=== PATIENT | female | born 1955 | race American Indian/Alaskan Native ===

== ENCOUNTER 2020-07-09 11:10 | Emergency (ER) | payer MEDICARE, OTHER ==
[2020-07-09] MEDS ORDERED: fentaNYL 100 MCG/2 ML SDV IVPUSH ONE (12:12)
--- NOTE | 2020-07-09 12:15 | EDM.PDOC ---
ED HPI GENERAL MEDICAL PROBLEM - General Chief Complaint: Lower Extremity Injury/Pain Stated Complaint: LEG/FEET PAIN WITH SWELLING Time Seen by Provider: 07/09/20 12:06 Source of Information: Reports: Patient, Family, RN Notes Reviewed History Limitations: Reports: No Limitations - History of Present Illness INITIAL COMMENTS - FREE TEXT/NARRATIVE: 65-year-old female presents emergency department today complaint of bilateral foot pain as well as a wound in her left foot she states has been there for couple of days she is quite uncomfortable with the ongoing foot pain she states she has no other health troubles recently moved to the area to spend more time with her daughter denies any fevers nausea vomiting shortness of breath or chest pain - Related Data Allergies Allergy/AdvReac Type Severity Reaction Status Date / Time No Known Allergies Allergy Verified 07/09/20 11:28 Home Meds: Home Meds Cholecalciferol (Vitamin D3) [Vitamin D] 1 tab PO DAILY 07/09/20 [History] No122/Iron/Folic Acid [ Multi Tablet] 1 tab PO DAILY 07/09/20 [History] Thiamine [Vitamin B-1] 100 mg PO DAILY 07/09/20 [History] Past Medical History HEENT History: Reports: Impaired Vision Respiratory History: Reports: COPD 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 History: Reports: Cirrhosis, 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 History: Reports: Psychiatric History: Reports: Addiction Endocrine/Metabolic History: Reports: Hypothyroidism, Obesity/BMI 30+ Hematologic History: Reports: Blood Transfusion(s), Folic Acid Dermatologic History: Reports: Psoriasis - Past Surgical History Oncologic Surgical History: Reports: Other (See Below) Other Oncologic Surgeries/Procedures: LIVER BIOPSY Social & Family History - Tobacco Use Tobacco Use Status *Q: Current Every Day Tobacco User Years of Tobacco use: 30 Packs/Tins Daily: 0.5 - Alcohol Use Days Per Week of Alcohol Use: 4 Number of Drinks Per Day: 7 Total Drinks Per Week: 28 - Recreational Drug Use Recreational Drug Use: No Review of Systems - Review of Systems Review Of Systems: See Below Constitutional: Reports: No Symptoms Respiratory: Reports: No Symptoms Cardiovascular: Reports: No Symptoms GI/Abdominal: Reports: No Symptoms Musculoskeletal: Reports: Foot Pain Skin: Reports: Wound ED EXAM, GENERAL - Physical Exam Exam: See Below Free Text/Narrative:: Examination of the feet pedal pulses +2 I do not appreciate any erythema there is no edema she does have an open wound on the bottom of her left foot that is approximately size of a $0.25 piece it is just proximal to the MCP joint digits 3 4 Exam Limited By: No Limitations General Appearance: Alert, Moderate Distress Respiratory/Chest: No Respiratory Distress, Lungs Clear, Normal Breath Sounds, No Accessory Muscle Use, Chest Non-Tender Cardiovascular: Regular Rate, Rhythm, No Murmur GI/Abdominal: Soft, Non-Tender Course - Vital Signs Last Recorded V/S: Last Vital Signs Temp 98.6 F 07/09/20 11:36 Pulse 106 H 07/09/20 11:36 Resp 15 07/09/20 11:36 BP 133/74 07/09/20 11:36 Pulse Ox 94 L 07/09/20 11:36 - Orders/Labs/Meds Orders: Active Orders 24 hr Category Date Time Status ceFAZolin [Ancef 1 GM/50 ML] 1 gm Med 07/09/20 13:57 Ordered Premix Bag 1 bag IV ONETIME Medication Orders Cefazolin Sodium/Dextrose 1 gm (/ Premix) 50 mls @ 100 mls/hr IV ONETIME ONE Stop: 07/09/20 14:26 Labs: Laboratory Tests 07/09/20 07/09/20 07/09/20 Range/Units 12:32 12:32 12:32 WBC 5.8 (4.5-11.0) K/uL RBC 4.43 (3.30-5.50) M/uL Hgb 13.8 (12.0-15.0) g/dL Hct 41.6 (36.0-48.0) % MCV 94 (80-98) fL MCH 31 (27-31) pg MCHC 33 (32-36) % Plt Count 42 L (150-400) K/uL Neut % (Auto) 63 (36-66) % Lymph % (Auto) 16 L (24-44) % [place] % (Auto) 18 H (2-6) % Eos % (Auto) 2 (2-4) % Baso % (Auto) 2 H (0-1) % Sodium 145 (140-148) mmol/L Potassium 3.9 (3.6-5.2) mmol/L Chloride 107 (100-108) mmol/L Carbon Dioxide 25 (21-32) mmol/L Anion Gap 12.9 (5.0-14.0) mmol/L BUN 4 L (7-18) mg/dL Creatinine 0.7 (0.6-1.0) mg/dL Est Cr Clr Drug Dosing 71.03 mL/min Estimated GFR (MDRD) > 60 (>60) Glucose 106 (74-106) mg/dL Lactic Acid 2.9 H (0.4-2.0) mmol/L Calcium 7.9 L (8.5-10.1) mg/dL Total Bilirubin 1.0 (0.2-1.0) mg/dL AST 184 H (15-37) U/L ALT 92 H (12-78) U/L Alkaline Phosphatase 176 H (46-116) U/L Total Protein 6.5 (6.4-8.2) g/dL Albumin 2.8 L (3.4-5.0) g/dL Globulin 3.7 H (2.3-3.5) g/dL Albumin/Globulin Ratio 0.8 L (1.2-2.2) Urine Color (YELLOW) Urine Appearance (CLEAR) Urine pH (5.0-8.0) Ur Specific [place] (1.008-1.030) Urine Protein (NEGATIVE) mg/dL Urine Glucose (UA) (NEGATIVE) mg/dL Urine Ketones (NEGATIVE) mg/dL Urine Occult Blood (NEGATIVE) Urine Nitrite (NEGATIVE) Urine Bilirubin (NEGATIVE) Urine Urobilinogen (0.2-1.0) EU/dL Ur Leukocyte Esterase (NEGATIVE) Urine RBC (0-5) Urine WBC (0-5) Ur Epithelial Cells Amorphous Sediment Urine Bacteria Urine Mucus 07/09/20 Range/Units 12:52 WBC (4.5-11.0) K/uL RBC (3.30-5.50) M/uL Hgb (12.0-15.0) g/dL Hct (36.0-48.0) % MCV (80-98) fL MCH (27-31) pg MCHC (32-36) % Plt Count (150-400) K/uL Neut % (Auto) (36-66) % Lymph % (Auto) (24-44) % [place] % (Auto) (2-6) % Eos % (Auto) (2-4) % Baso % (Auto) (0-1) % Sodium (140-148) mmol/L Potassium (3.6-5.2) mmol/L Chloride (100-108) mmol/L Carbon Dioxide (21-32) mmol/L Anion Gap (5.0-14.0) mmol/L BUN (7-18) mg/dL Creatinine (0.6-1.0) mg/dL Est Cr Clr Drug Dosing mL/min Estimated GFR (MDRD) (>60) Glucose (74-106) mg/dL Lactic Acid (0.4-2.0) mmol/L Calcium (8.5-10.1) mg/dL Total Bilirubin (0.2-1.0) mg/dL AST (15-37) U/L ALT (12-78) U/L Alkaline Phosphatase (46-116) U/L Total Protein (6.4-8.2) g/dL Albumin (3.4-5.0) g/dL Globulin (2.3-3.5) g/dL Albumin/Globulin Ratio (1.2-2.2) Urine Color Yellow (YELLOW) Urine Appearance Clear (CLEAR) Urine pH 7.0 (5.0-8.0) Ur Specific [place] 1.010 (1.008-1.030) Urine Protein Negative (NEGATIVE) mg/dL Urine Glucose (UA) Negative (NEGATIVE) mg/dL Urine Ketones Negative (NEGATIVE) mg/dL Urine Occult Blood Trace-intact H (NEGATIVE) Urine Nitrite Negative (NEGATIVE) Urine Bilirubin Negative (NEGATIVE) Urine Urobilinogen 0.2 (0.2-1.0) EU/dL Ur Leukocyte Esterase Negative (NEGATIVE) Urine RBC 0-5 (0-5) Urine WBC 0-5 (0-5) Ur Epithelial Cells Few Amorphous Sediment Not seen Urine Bacteria Many Urine Mucus Not seen Meds: Medications Generic Name Dose Route Start Last Admin Trade Name Freq PRN Reason Stop Dose Admin Cefazolin Sodium/Dextrose 1 gm 50 mls @ 100 mls/hr 07/09/20 13:57 / Premix IV 07/09/20 14:26 ONETIME ONE Discontinued Medications Generic Name Dose Route Start Last Admin Trade Name Freq PRN Reason Stop Dose Admin Fentanyl 50 mcg 07/09/20 12:12 07/09/20 12:32 Fentanyl 100 Mcg/2 Ml Sdv IVPUSH 07/09/20 12:13 50 mcg ONETIME ONE Administration Hydromorphone HCl 1 mg 07/09/20 13:57 Hydromorphone 1 Mg/Ml Syringe IVPUSH 07/09/20 13:58 ONETIME ONE Departure - Departure Time of Disposition: 14:01 Disposition: Home, Self-Care 01 Condition: Fair Clinical Impression: Cellulitis of left foot - Discharge Information Instructions: Cellulitis, Adult Referrals: PCP,None [Primary Care Provider] - Forms: ED Department Discharge Additional Instructions: Take full course of antibiotics, use Tylenol or Motrin as needed for baseline pain control, for breakthrough pain use hydrocodone, please follow-up with your primary care provider in the next 3 to 5 days for reevaluation, call return to the emergency department worsening of symptoms Sepsis Event Note (ED) - Evaluation Sepsis Screening Result: No Definite Risk - Focused Exam Vital Signs: Vital Signs Temp Pulse Resp BP Pulse Ox 07/09/20 11:36 98.6 F 106 H 15 133/74 94 L 07/09/20 11:26 98.6 F 106 H 15 133/74 94 L - My Orders Last 24 Hours: My Active Orders 07/09/20 13:57 ceFAZolin [Ancef 1 GM/50 ML] 1 gm Premix Bag 1 bag IV ONETIME - Assessment/Plan Last 24 Hours: My Active Orders 07/09/20 13:57 ceFAZolin [Ancef 1 GM/50 ML] 1 gm Premix Bag 1 bag IV ONETIME Plan: Assessment Acuity = acute Site and laterality = cellulitis left foot Etiology = probable bacterial cause Manifestations = none Location of injury = Home Lab values = CBC unremarkable, lactic acid elevated 2.9 consistent lactic acidosis AST elevated 184 ALT elevated 92 consistent with elevated liver enzymes urinalysis unremarkable x-ray shows no acute bony process Plan Elected to treat empirically she was given 1 g cefazolin L in the emergency department prescription written for Keflex 500 mg p.o. 4 times daily x7 days in combination with hydrocodone 5/325 1 tab p.o. 3 times daily as needed total #6 she is to follow-up with primary care in the next 3 to 5 days for reevaluation This note was dictated using [employer] voice recognition software please call with any questions on syntax or grammar.
--- NOTE | 2020-07-09 13:37 | CR ---
Foot Comp Min 3V Lt CLINICAL HISTORY: Left foot wound FINDINGS: There is no acute fracture or dislocation within the foot. No destructive changes are present. There is a healed fracture of the fifth metatarsal. There is a moderate size calcaneal spur. IMPRESSION: No acute bony process.
[2020-07-09] MEDS ORDERED: HYDROmorphone 1 MG/ML Syringe IVPUSH ONE (13:57)
[2020-07-09] MEDS ORDERED: ceFAZolin 1 GM in Premix Bag 1 BAG IV ONE (13:57)
== END 2020-07-09 14:45 | disposition home or self-care (01) ==
LOC: JP.ED 11:10
DX: L03.116 Cellulitis of left lower limb (principal); J44.9 Chronic obstructive pulmonary disease, unspecified; E66.9 Obesity, unspecified; Z72.0 Tobacco use; Z68.34 Body mass index [BMI] 34.0-34.9, adult
CPT/HCPCS: 36415; 73630; 80053; 81001; 83605; 85025; 96365; 96375; 99283; J0690; J1170; J3010

== ENCOUNTER 2020-08-20 11:51 | Emergency (ER) | payer MEDICARE, OTHER ==
--- NOTE | 2020-08-20 12:27 | EDM.PDOC ---
ED HPI GENERAL MEDICAL PROBLEM - General Chief Complaint: ENT Problem Stated Complaint: stomach pain and ear ache Time Seen by Provider: 08/20/20 12:27 Source of Information: Reports: Patient History Limitations: Reports: No Limitations - History of Present Illness INITIAL COMMENTS - FREE TEXT/NARRATIVE: 65-year-old female was had right ear and right throat pain for the past several weeks, was seen at the [facility] a week ago and put on some eardrops. They are not helping, she feels miserable, feels like she is running fevers and now is developed some stomach ache intermittent. Nausea but no vomiting. Her symptoms are all in the right ear and right side of her neck and throat. Onset: Gradual Duration: Week(s): (Several weeks of symptoms) Location: Reports: Other (Right ear, neck and throat) Associated Symptoms: Reports: Other (Claims she is running a fever and having stomachaches) Right Ear Pain Score (Numeric/FACES): 10 - Related Data Allergies Allergy/AdvReac Type Severity Reaction Status Date / Time No Known Allergies Allergy Verified 08/20/20 12:13 Home Meds: Home Meds Cholecalciferol (Vitamin D3) [Vitamin D] 1 tab PO DAILY 07/09/20 [History] No122/Iron/Folic Acid [ Multi Tablet] 1 tab PO DAILY 07/09/20 [History] Thiamine [Vitamin B-1] 100 mg PO DAILY 07/09/20 [History] Amoxicillin 500 mg PO TID 7 Days #20 tab 08/20/20 [Rx] Past Medical History HEENT History: Reports: Impaired Vision Respiratory History: Reports: COPD 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 History: Reports: 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, 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: Psychiatric History: Reports: Addiction Endocrine/Metabolic History: Reports: Hypothyroidism, Obesity/BMI 30+ Hematologic History: Reports: Blood Transfusion(s), Folic Acid Dermatologic History: Reports: Psoriasis - Past Surgical History Oncologic Surgical History: Reports: Other (See Below) Other Oncologic Surgeries/Procedures: LIVER BIOPSY Social & Family History - Tobacco Use Tobacco Use Status *Q: Light Tobacco User Years of Tobacco use: 30 Packs/Tins Daily: 0.5 - Caffeine Use Caffeine Use: Reports: None - Alcohol Use Number of Drinks Per Day: 12 - Recreational Drug Use Recreational Drug Use: No ED ROS GENERAL - Review of Systems Review Of Systems: See Below Constitutional: Reports: Fever, Chills, Malaise HEENT: Reports: Ear Pain (Right side), Throat Pain Respiratory: Denies: Shortness of Breath, Cough Cardiovascular: Denies: Chest Pain GI/Abdominal: Reports: Abdominal Pain, Nausea. Denies: Constipation, Diarrhea, Vomiting : Reports: No Symptoms Skin: Reports: No Symptoms Neurological: Reports: Headache ED EXAM, GENERAL - Physical Exam Exam: See Below Exam Limited By: No Limitations General Appearance: Alert, No Apparent Distress Eye Exam: Bilateral Eye: Normal Inspection Ears: Normal TMs, Other (Some discomfort with movement of the right ear helix and pinna) Throat/Mouth: Normal Inspection Head: Atraumatic Neck: Other (She is tender to palpation under the right maxillary area up to the anterior aspect of the ear, preauricular area. ). No: Lymphadenopathy (R), Lymphadenopathy (L) GI/Abdominal: Soft, Non-Tender (I cannot reproduce abdominal pain) Neurological: Alert, Oriented Psychiatric: Anxious Skin Exam: Warm, Dry Course - Vital Signs Last Recorded V/S: Last Vital Signs Temp 98.1 F 08/20/20 12:10 Pulse 81 08/20/20 12:10 Resp 20 08/20/20 12:10 BP 147/84 H 08/20/20 12:10 Pulse Ox 96 08/20/20 12:10 - Orders/Labs/Meds Meds: Medications Discontinued Medications Generic Name Dose Route Start Last Admin Trade Name Ana PRN Reason Stop Dose Admin Acetaminophen 1,000 mg 08/20/20 12:35 08/20/20 12:40 Acetaminophen 500 Mg Tab PO 08/20/20 12:36 1,000 mg ONETIME ONE Administration - Re-Assessments/Exams Free Text/Narrative Re-Assessment/Exam: 08/20/20 12:42 Explained to the patient that I do not see evidence of a middle ear or external ear infection at this time, it sounds like she has eustachian tube dysfunction or inflammation. I gave her 1000 mg of oral Tylenol, we can try a course of antibiotic of amoxicillin for 7 days, 500 mg 3 times a day, and she can recheck after the antibiotic if not improving satisfactorily. Return sooner if abdominal pain worsens or she develops other concerns. Departure - Departure Time of Disposition: 12:46 Disposition: Home, Self-Care 01 Clinical Impression: Dysfunction of eustachian tube Qualifiers: Laterality: right Qualified Code(s): H69.81 - Other specified disorders of Eustachian tube, right ear - Discharge Information Prescriptions: Amoxicillin 500 mg PO TID 7 Days #20 tab Instructions: Eustachian Tube Dysfunction Referrals: PCP,None [Primary Care Provider] - Forms: ED Department Discharge Care Plan Goals: Take antibiotic 3 times a day, continue with ibuprofen or Tylenol if needed for discomfort and consider rechecking early next week if not improving satisfactorily. Return sooner if your abdominal pain worsens or you develop other concerns. Sepsis Event Note (ED) - Evaluation Sepsis Screening Result: No Definite Risk - Focused Exam Vital Signs: Vital Signs Temp Pulse Resp BP Pulse Ox 08/20/20 12:10 98.1 F 81 20 147/84 H 96
[2020-08-20] MEDS ORDERED: Acetaminophen 500 MG Tab PO ONE (12:35)
== END 2020-08-20 12:51 | disposition home or self-care (01) ==
LOC: JP.ED 11:51
DX: H69.81 Other specified disorders of Eustachian tube, right ear (principal); J44.9 Chronic obstructive pulmonary disease, unspecified; E66.9 Obesity, unspecified; Z68.34 Body mass index [BMI] 34.0-34.9, adult; Z72.0 Tobacco use
CPT/HCPCS: 99283; A9270

== ENCOUNTER 2020-09-11 11:52 | Emergency (ER) | payer MEDICARE, OTHER ==
--- NOTE | 2020-09-11 13:41 | EDM.PDOC ---
ED HPI GENERAL MEDICAL PROBLEM - General Chief Complaint: ENT Problem Stated Complaint: SORE THROAT Time Seen by Provider: 09/11/20 13:20 Source of Information: Reports: Patient History Limitations: Reports: No Limitations - History of Present Illness INITIAL COMMENTS - FREE TEXT/NARRATIVE: 65-year-old female with sore throat especially the last 48 hours. No fevers or chills, no nausea or vomiting. Denies a cough. I saw her 3 weeks ago for ear pain, placed on an antibiotic and she is not sure if it helped much. Still having some right ear discomfort. Onset: Unknown/Unsure Duration: Day(s): (Sore throat is been worse the last 2 days) Associated Symptoms: Reports: Malaise. 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, 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: Psychiatric History: Reports: Addiction Endocrine/Metabolic History: Reports: Hypothyroidism, Obesity/BMI 30+ Hematologic History: Reports: Blood Transfusion(s), Folic Acid Dermatologic History: Reports: Psoriasis - Past Surgical History Oncologic Surgical History: Reports: Other (See Below) Other Oncologic Surgeries/Procedures: LIVER BIOPSY Social & Family History - Tobacco Use Tobacco Use Status *Q: Current Every Day Tobacco User Years of Tobacco use: 30 Packs/Tins Daily: 0.5 - Caffeine Use Caffeine Use: Reports: None ED ROS ENT - Review of Systems Review Of Systems: See Below Constitutional: Denies: Fever, Chills HEENT: Reports: Ear Pain (Right-sided), Throat Pain Respiratory: Denies: Shortness of Breath, Cough Cardiovascular: Denies: Chest Pain GI/Abdominal: Denies: Nausea, Vomiting Neurological: Denies: Headache (No headache) ED EXAM, ENT - Physical Exam Exam: See Below Exam Limited By: No Limitations General Appearance: Alert, No Apparent Distress Ears: Normal TMs Mouth/Throat: Pharyngeal Erythema (Erythema), Tonsillar Erythema, Other (Small white plaques are present especially on the right uvula and posterior tonsillar pillar on the right side.) Respiratory/Chest: No Respiratory Distress, Lungs Clear Cardiovascular: Regular Rate, Rhythm Neurological: Alert, Oriented Psychiatric: Normal Affect, Normal Mood Skin: Warm, Dry Course - Vital Signs Last Recorded V/S: Last Vital Signs Temp 98.2 F 09/11/20 13:26 Pulse 88 09/11/20 13:26 Resp 20 09/11/20 13:26 BP 125/88 09/11/20 13:26 Pulse Ox 96 09/11/20 13:26 - Orders/Labs/Meds Orders: Active Orders 24 hr Category Date Time Status CULTURE STREP A CONFIRMATION [RM] Routine Lab 09/11/20 13:37 Results STREP SCRN A RAPID W CULT CONF [RM] Routine Lab 09/11/20 13:37 Results - Re-Assessments/Exams Free Text/Narrative Re-Assessment/Exam: 09/11/20 13:40 Rapid strep was obtained, if this is negative she will be treated with Mycelex lozenges for suspected superficial thrush infection. 09/11/20 14:09 Strep was negative, offered the patient some Mycelex lozenges for topical yeast infection, but she became impatient and left without any advice or any treatment because she wanted something to eat and a cigarette Departure - Departure Time of Disposition: 14:10 Disposition: Home, Self-Care 01 Clinical Impression: Pharyngitis Qualifiers: Pharyngitis/tonsillitis etiology: other specified organisms Qualified Code(s): J02.8 - Acute pharyngitis due to other specified organisms - Discharge Information Referrals: PCP,None [Primary Care Provider] - Forms: ED Department Discharge Care Plan Goals: Was going to treat the patient for topical thrush with Mycelex but she left wit hout treatment or discharge instructions because she became impatient. Sepsis Event Note (ED) - Evaluation Sepsis Screening Result: No Definite Risk - My Orders Last 24 Hours: My Active Orders 09/11/20 13:37 CULTURE STREP A CONFIRMATION [RM] Routine STREP SCRN A RAPID W CULT CONF [] Routine - Assessment/Plan Last 24 Hours: My Active Orders 09/11/20 13:37 CULTURE STREP A CONFIRMATION [RM] Routine STREP SCRN A RAPID W CULT CONF [RM] Routine
== END 2020-09-11 14:16 | disposition home or self-care (01) ==
LOC: JP.ED 11:52
DX: J02.8 Acute pharyngitis due to other specified organisms (principal); J44.9 Chronic obstructive pulmonary disease, unspecified; E66.9 Obesity, unspecified; Z68.30 Body mass index [BMI] 30.0-30.9, adult; Z72.0 Tobacco use
CPT/HCPCS: 87081; 87880-QW; 99283

== ENCOUNTER 2022-08-11 12:57 | Emergency (ER) | payer MEDICARE | END 2022-08-11 14:06 | disposition left against medical advice (07) | LOC: JP.ED 12:57 | DX: J02.9 Acute pharyngitis, unspecified (principal); Z53.29 Procedure and treatment not carried out because of patient's decision for other reasons; E03.9 Hypothyroidism, unspecified; J44.9 Chronic obstructive pulmonary disease, unspecified; Z72.0 Tobacco use; Z79.899 Other long term (current) drug therapy | CPT/HCPCS: 99283 ==

== ENCOUNTER 2022-08-21 16:39 | Emergency (ER) | payer MEDICARE | END 2022-08-21 17:58 | disposition home or self-care (01) | LOC: JP.ED 16:39 | DX: B37.0 Candidal stomatitis (principal); J44.9 Chronic obstructive pulmonary disease, unspecified; E66.9 Obesity, unspecified; Z68.36 Body mass index [BMI] 36.0-36.9, adult; F17.210 Nicotine dependence, cigarettes, uncomplicated | CPT/HCPCS: 87081; 87880-QW; 99283 ==

== ENCOUNTER 2023-01-07 09:32 | Emergency (ER) | payer MEDICARE ==
[2023-01-07] MEDS ORDERED: Ketorolac 30 MG/ML SDV IM ONE (10:29)
[2023-01-07 10:40] LABS: BASOPHILS ABSOLUTE AUTO 0.11 K/uL (0.00-0.10); BASOPHILS PERCENT AUTO 2.7 % (0.1-1.3); EOSINOPHILS ABSOLUTE AUTO 0.28 K/uL (0.00-0.40); EOSINOPHILS PERCENT AUTO 6.7 % (0.0-5.4); HEMOGLOBIN 13.8 g/dL (11.2-15.5); IMMATURE GRAN PERCENT AUTO 0.5 % (0.0-0.7); LYMPHOCYTES ABSOLUTE AUTO 1.52 K/uL (0.8-3.3); LYMPHOCYTES PERCENT AUTO 36.6 % (11.4-47.7); MEAN CORPUSCULAR HEMOGLOBIN 28.7 pg (31.6-35.5); MEAN CORPUSCULAR HGB CONC 32.1 g/dL (31.6-35.5); MEAN CORPUSCULAR VOLUME 89.4 fL (81.4-99.0); MONOCYTES ABSOLUTE AUTO 0.65 K/uL (0.20-0.90); MONOCYTES PERCENT AUTO 15.7 % (3.3-12.6); NEUTROPHILS ABSOLUTE AUTO 1.57 K/uL (1.0-7.6); NEUTROPHILS PERCENT AUTO 37.8 % (40.0-78.1); PLATELET COUNT,PLT 107 K/uL (130-375); RED BLOOD CELL COUNT 4.81 M/uL (3.77-5.24); WHITE BLOOD CELL COUNT,WBC 4.2 K/uL (3.2-11.0)
[2023-01-07 10:41] LABS: APPEARANCE,URINE CLEAR (CLEAR); BILIRUBIN,URINE NEGATIVE (NEGATIVE); COLOR,URINE YELLOW (YELLOW); GLUCOSE,URINE NEGATIVE (NEGATIVE); KETONES,URINE NEGATIVE (NEGATIVE); LEUKOCYTE ESTERASE,URINE NEGATIVE (NEGATIVE); NITRITE,URINE NEGATIVE (NEGATIVE); OCCULT BLOOD,URINE MODERATE (NEGATIVE); PROTEIN,URINE NEGATIVE (NEGATIVE); UROBILINOGEN,URINE 0.2 EU/dL (0.2-1.0)
[2023-01-07 10:44] LABS: IMMATURE GRAN ABSOLUTE AUTO 0.02 K/uL (0.00-0.23)
[2023-01-07 10:52] LABS: AMORPHOUS SEDIMENT,URINE NOT SEEN; BACTERIA,URINE NOT SEEN; EPITHELIAL CELLS,URINE NOT SEEN; MUCUS,URINE FEW; WBC,URINE 0-5 (0-5)
[2023-01-07 11:01] LABS: A/G RATIO 0.5 (1.2-2.2); ALANINE AMINOTRANSFERASE,ALT 36 U/L (12-78); ALBUMIN 2.3 g/dL (3.4-5.0); ALKALINE PHOSPHATASE 223 U/L (46-116); ANION GAP 8.2 mmol/L (5.0-14.0); ASPARTATE AMNIOTRANSFERASE,AST 59 U/L (15-37); BILIRUBIN TOTAL 0.8 mg/dL (0.2-1.0); BLOOD UREA NITROGEN,BUN 3 mg/dL (7-18); CALCIUM 8.3 mg/dL (8.5-10.1); CARBON DIOXIDE,CO2 30 mmol/L (21-32); CHLORIDE,CL 108 mmol/L (100-108); CREATININE 0.5 mg/dL (0.6-1.0); ESTIMATED GFR 104 mL/min (>60); GLUCOSE RANDOM 119 mg/dL (74-106); POTASSIUM,K 4.4 mmol/L (3.6-5.2); PROTEIN TOTAL,TP 6.8 g/dL (6.4-8.2); SODIUM,NA 146 mmol/L (140-148)
== END 2023-01-07 12:19 | disposition home or self-care (01) ==
LOC: JP.ED 09:32
DX: S22.31XA Fracture of one rib, right side, initial encounter for closed fracture (principal); F10.129 Alcohol abuse with intoxication, unspecified; Y90.6 Blood alcohol level of 120-199 mg/100 ml; E66.9 Obesity, unspecified; F17.210 Nicotine dependence, cigarettes, uncomplicated
CPT/HCPCS: 36415; 71101; 80053; 80307; 81001; 83690; 85025; 96372; 99283; J1885

== ENCOUNTER 2023-01-18 16:53 | Emergency (ER) | payer MEDICARE ==
[2023-01-18] MEDS ORDERED: Dexamethasone 4 MG/ML SDV PO STA (17:42)
[2023-01-18] MEDS ORDERED: Bacitracin Oint 1 GM U/D Packet TOP ONE (17:42)
== END 2023-01-18 18:01 | disposition home or self-care (01) ==
LOC: JP.ED 16:53
DX: J02.9 Acute pharyngitis, unspecified (principal); J44.9 Chronic obstructive pulmonary disease, unspecified; E66.9 Obesity, unspecified
CPT/HCPCS: 99282; J8540

== ENCOUNTER 2023-02-25 13:09 | Emergency (ER) | payer MEDICARE ==
[2023-02-25] MEDS ORDERED: Ketorolac 30 MG/ML SDV IM ONE (13:53)
== END 2023-02-25 16:40 | disposition home or self-care (01) ==
LOC: JP.ED 13:09
DX: S80.12XA Contusion of left lower leg, initial encounter (principal); J43.9 Emphysema, unspecified; E66.9 Obesity, unspecified; Z68.30 Body mass index [BMI] 30.0-30.9, adult; W01.0XXA Fall on same level from slipping, tripping and stumbling without subsequent striking against object, initial encounter
CPT/HCPCS: 71250; 73590; 73610; 73630; 73700; 74176; 76377; 96372; 99284; J1885

== ENCOUNTER 2023-09-25 06:56 | Emergency (ER) | payer MEDICARE ==
[2023-09-25] MEDS: HYDROmorphone 1 MG/ML Syringe IM ONE ×2 (07:45→08:45)
[2023-09-25] MEDS: Ondansetron 4 MG Tab.DIS PO ONE (08:58)
== END 2023-09-25 08:55 | disposition home or self-care (01) ==
LOC: JP.ED 06:56
DX: S82.831A Other fracture of upper and lower end of right fibula, initial encounter for closed fracture (principal); J44.9 Chronic obstructive pulmonary disease, unspecified; E66.9 Obesity, unspecified; F17.210 Nicotine dependence, cigarettes, uncomplicated; Z79.899 Other long term (current) drug therapy; Z68.36 Body mass index [BMI] 36.0-36.9, adult; W01.0XXA Fall on same level from slipping, tripping and stumbling without subsequent striking against object, initial encounter
CPT/HCPCS: 73590; 73600; 96372; 99283; J1170; Q0162

== ENCOUNTER 2024-05-26 13:12 | Emergency (ER) | payer MEDICARE ==
[2024-05-26 14:25] LABS: BASOPHILS ABSOLUTE AUTO 0.16 K/uL (0.00-0.10); EOSINOPHILS ABSOLUTE AUTO 0.17 K/uL (0.00-0.40); EOSINOPHILS PERCENT AUTO 2.2 % (0.0-5.4); HEMATOCRIT 45.4 % (34.3-46.0); HEMOGLOBIN 15.1 g/dL (11.2-15.5); IMMATURE GRAN ABSOLUTE AUTO 0.07 K/uL (0.00-0.23); IMMATURE GRAN PERCENT AUTO 0.9 % (0.0-0.7); LYMPHOCYTES ABSOLUTE AUTO 1.18 K/uL (0.8-3.3); LYMPHOCYTES PERCENT AUTO 15.1 % (11.4-47.7); MEAN CORPUSCULAR HEMOGLOBIN 29.4 pg (31.6-35.5); MEAN CORPUSCULAR HGB CONC 33.3 g/dL (31.6-35.5); MEAN CORPUSCULAR VOLUME 88.5 fL (81.4-99.0); MONOCYTES ABSOLUTE AUTO 1.09 K/uL (0.20-0.90); MONOCYTES PERCENT AUTO 13.9 % (3.3-12.6); NEUTROPHILS ABSOLUTE AUTO 5.16 K/uL (1.0-7.6); NEUTROPHILS PERCENT AUTO 65.9 % (40.0-78.1); PLATELET COUNT,PLT 114 K/uL (130-375); RED BLOOD CELL COUNT 5.13 M/uL (3.77-5.24); WHITE BLOOD CELL COUNT,WBC 7.8 K/uL (3.2-11.0)
[2024-05-26 14:43] LABS: APPEARANCE,URINE CLEAR (CLEAR); BILIRUBIN,URINE NEGATIVE (NEGATIVE); COLOR,URINE YELLOW (YELLOW); GLUCOSE,URINE NEGATIVE (NEGATIVE); KETONES,URINE NEGATIVE (NEGATIVE); LEUKOCYTE ESTERASE,URINE NEGATIVE (NEGATIVE); NITRITE,URINE NEGATIVE (NEGATIVE); OCCULT BLOOD,URINE MODERATE (NEGATIVE); PROTEIN,URINE NEGATIVE (NEGATIVE)
[2024-05-26 14:47] LABS: A/G RATIO 0.5 (1.2-2.2); ALANINE AMINOTRANSFERASE,ALT 28 U/L (12-78); ALBUMIN 2.6 g/dL (3.4-5.0); ALKALINE PHOSPHATASE 235 U/L (46-116); ANION GAP 10.3 mmol/L (5.0-14.0); ASPARTATE AMNIOTRANSFERASE,AST 70 U/L (15-37); BILIRUBIN TOTAL 2.9 mg/dL (0.2-1.0); BLOOD UREA NITROGEN,BUN 6 mg/dL (7-18); CALCIUM 8.9 mg/dL (8.5-10.1); CARBON DIOXIDE,CO2 27 mmol/L (21-32); CHLORIDE,CL 103 mmol/L (100-108); CREATININE 0.8 mg/dL (0.6-1.0); EST CRCL DRUG DOSING (CG) 58.93 mL/min; ESTIMATED GFR 81 mL/min (>60); GLUCOSE RANDOM 126 mg/dL (74-106); POTASSIUM,K 3.8 mmol/L (3.6-5.2); PROTEIN TOTAL,TP 7.4 g/dL (6.4-8.2); SODIUM,NA 140 mmol/L (140-148)
[2024-05-26 14:58] LABS: AMORPHOUS SEDIMENT,URINE NOT SEEN; BACTERIA,URINE RARE; EPITHELIAL CELLS,URINE FEW; MUCUS,URINE NOT SEEN; WBC,URINE 0-5 (0-5)
[2024-05-26] MEDS: HYDROmorphone 0.5 MG/0.5 ML Syringe IVPUSH ONE (15:33)
[2024-05-26] MEDS: Sodium Chloride 0.9% 10 ML Syringe FLUSH PRN (15:35)
[2024-05-26] MEDS: Iopamidol 612 MG/ML 100 ML Bottle IV PRN (15:40)
[2024-05-26] MEDS: Sodium Chloride 0.9% 80 ML IV ONE (15:40)
[2024-05-26 15:43] LABS: INR 1.2; PTT,PARTIAL THROMBOPLSTIN TIME 25.6 sec (21.8-27.3)
[2024-05-26] MEDS ORDERED: Naloxone 0.4 MG/ML SDV IVPUSH PRN (17:28)
[2024-05-26] MEDS: HYDROmorphone 1 MG/ML Syringe IVPUSH PRN (17:49)
[2024-05-26] MEDS ORDERED: Sodium Chloride 0.9% 1,000 ML IV ONE (17:50)
[2024-05-26] MEDS: Ondansetron 4 MG/2 ML SDV IVPUSH ONE (17:52)
[2024-05-26 17:54] LABS: TROPONIN I HIGH SENSITIVITY 19.9 pg/mL (<=60.3)
== END 2024-05-26 20:08 | disposition home or self-care (01) ==
LOC: JP.ED 13:12
DX: K70.31 Alcoholic cirrhosis of liver with ascites (principal); J90 Pleural effusion, not elsewhere classified; E03.9 Hypothyroidism, unspecified; J44.9 Chronic obstructive pulmonary disease, unspecified; F10.20 Alcohol dependence, uncomplicated; Z79.899 Other long term (current) drug therapy; Y90.9 Presence of alcohol in blood, level not specified
CPT/HCPCS: 36415; 71046; 74177; 80053; 80307; 81001; 83690; 83880; 84484; 85025; 85610; 85730; 93005; 96374; 96375; 96376; 99284; J1171; J2405; Q9967

== ENCOUNTER 2024-06-12 12:42 | Emergency (ER) | payer MEDICARE ==
[2024-06-12] MEDS: Acetaminophen/oxyCODONE 325-5 MG Tab PO ONE (15:07)
== END 2024-06-12 18:37 | disposition home or self-care (01) ==
LOC: JP.ED 12:42
DX: C34.2 Malignant neoplasm of middle lobe, bronchus or lung (principal); J44.9 Chronic obstructive pulmonary disease, unspecified; E03.9 Hypothyroidism, unspecified; Z79.899 Other long term (current) drug therapy; Z87.891 Personal history of nicotine dependence; Z48.813 Encounter for surgical aftercare following surgery on the respiratory system
CPT/HCPCS: 32555; 71046; 99283; 99285; A9270; C1729

== ENCOUNTER 2024-06-17 10:26 | Emergency (ER) | payer MEDICARE ==
[2024-06-17] MEDS: Albuterol/Ipratropium 3.0-0.5 MG/3 ML Neb Soln NEB ONE (10:37)
[2024-06-17 10:51] LABS: BASE EXCESS ARTERIAL 0.1 mm/L; BICARBONATE,ARTERIAL 24.9 mmol/L (22.0-26.0); CARBOXYHEMOGLOBIN 2.2 % (0.0-1.6); METHEMOGLOBIN 0.8 %; O2 SATURATION ARTERIAL 95.7 % (95.0-98.0); OXYHEMOGLOBIN 92.8 %; PCO2 ARTERIAL 43.3 mmHg (35.0-42.0); PO2 ARTERIAL 86.4 mmHg (75.0-100.0); TOTAL HEMOGLOBIN 15.9 g/dL (12.0-16.0)
[2024-06-17 10:54] LABS: BASOPHILS ABSOLUTE AUTO 0.17 K/uL (0.00-0.10); BASOPHILS PERCENT AUTO 2.1 % (0.1-1.3); EOSINOPHILS ABSOLUTE AUTO 0.13 K/uL (0.00-0.40); EOSINOPHILS PERCENT AUTO 1.6 % (0.0-5.4); HEMATOCRIT 48.3 % (34.3-46.0); HEMOGLOBIN 16.1 g/dL (11.2-15.5); IMMATURE GRAN ABSOLUTE AUTO 0.05 K/uL (0.00-0.23); IMMATURE GRAN PERCENT AUTO 0.6 % (0.0-0.7); LYMPHOCYTES ABSOLUTE AUTO 1.32 K/uL (0.8-3.3); LYMPHOCYTES PERCENT AUTO 16.3 % (11.4-47.7); MEAN CORPUSCULAR HEMOGLOBIN 29.8 pg (31.6-35.5); MEAN CORPUSCULAR HGB CONC 33.3 g/dL (31.6-35.5); MEAN CORPUSCULAR VOLUME 89.3 fL (81.4-99.0); MONOCYTES ABSOLUTE AUTO 0.89 K/uL (0.20-0.90); NEUTROPHILS ABSOLUTE AUTO 5.52 K/uL (1.0-7.6); NEUTROPHILS PERCENT AUTO 68.4 % (40.0-78.1); PLATELET COUNT,PLT 173 K/uL (130-375); RED BLOOD CELL COUNT 5.41 M/uL (3.77-5.24); WHITE BLOOD CELL COUNT,WBC 8.1 K/uL (3.2-11.0)
[2024-06-17 11:19] LABS: LACTIC ACID 2.9 mmol/L (0.4-2.0)
[2024-06-17 11:22] LABS: A/G RATIO 0.5 (1.2-2.2); ALANINE AMINOTRANSFERASE,ALT 30 U/L (12-78); ALBUMIN 2.2 g/dL (3.4-5.0); ALKALINE PHOSPHATASE 154 U/L (46-116); ASPARTATE AMNIOTRANSFERASE,AST 54 U/L (15-37); BILIRUBIN TOTAL 2.2 mg/dL (0.2-1.0); BLOOD UREA NITROGEN,BUN 13 mg/dL (7-18); CALCIUM 8.8 mg/dL (8.5-10.1); CARBON DIOXIDE,CO2 24 mmol/L (21-32); CHLORIDE,CL 98 mmol/L (100-108); CREATININE 0.8 mg/dL (0.6-1.0); EST CRCL DRUG DOSING (CG) 58.93 mL/min; ESTIMATED GFR 81 mL/min (>60); GLUCOSE RANDOM 105 mg/dL (74-106); POTASSIUM,K 4.6 mmol/L (3.6-5.2); PROTEIN TOTAL,TP 6.6 g/dL (6.4-8.2); SODIUM,NA 134 mmol/L (140-148)
[2024-06-17 11:24] LABS: ANION GAP 16.6 mmol/L (5.0-14.0)
== END 2024-06-17 15:28 | disposition home or self-care (01) ==
LOC: JP.ED 10:26
DX: C34.91 Malignant neoplasm of unspecified part of right bronchus or lung (principal); E66.9 Obesity, unspecified; E03.9 Hypothyroidism, unspecified; J44.9 Chronic obstructive pulmonary disease, unspecified; Z79.899 Other long term (current) drug therapy; Z87.891 Personal history of nicotine dependence; Z68.37 Body mass index [BMI] 37.0-37.9, adult
CPT/HCPCS: 32555; 36415; 36600; 71045; 71046; 80053; 82803; 83605; 85025; 87040; 94640; 99285-25; A9270-GY

== ENCOUNTER 2024-06-21 12:23 | Emergency (ER) | payer MEDICARE ==
[2024-06-21] MEDS ORDERED: Sodium Chloride 0.9% 10 ML Syringe FLUSH PRN (14:03)
[2024-06-21 14:15] LABS: BASOPHILS PERCENT AUTO 0.1 % (0.1-1.3); EOSINOPHILS PERCENT AUTO 0.1 % (0.0-5.4); HEMATOCRIT 44.3 % (34.3-46.0); IMMATURE GRAN ABSOLUTE AUTO 0.08 K/uL (0.00-0.23); IMMATURE GRAN PERCENT AUTO 0.7 % (0.0-0.7); LYMPHOCYTES ABSOLUTE AUTO 0.31 K/uL (0.8-3.3); LYMPHOCYTES PERCENT AUTO 2.9 % (11.4-47.7); MEAN CORPUSCULAR HEMOGLOBIN 29.5 pg (31.6-35.5); MEAN CORPUSCULAR HGB CONC 33.9 g/dL (31.6-35.5); MONOCYTES ABSOLUTE AUTO 0.85 K/uL (0.20-0.90); MONOCYTES PERCENT AUTO 7.9 % (3.3-12.6); NEUTROPHILS ABSOLUTE AUTO 9.44 K/uL (1.0-7.6); NEUTROPHILS PERCENT AUTO 88.3 % (40.0-78.1); PLATELET COUNT,PLT 160 K/uL (130-375); RED BLOOD CELL COUNT 5.09 M/uL (3.77-5.24); WHITE BLOOD CELL COUNT,WBC 10.7 K/uL (3.2-11.0)
[2024-06-21 14:20] LABS: BASOPHILS ABSOLUTE AUTO 0.01 K/uL (0.00-0.10); EOSINOPHILS ABSOLUTE AUTO 0.01 K/uL (0.00-0.40)
[2024-06-21 14:30] LABS: CALCIUM 9.1 mg/dL (8.5-10.1); CREATININE 0.7 mg/dL (0.6-1.0); EST CRCL DRUG DOSING (CG) 67.34 mL/min; POTASSIUM,K 5.6 mmol/L (3.6-5.2)
[2024-06-21 14:33] LABS: ANION GAP 13.6 mmol/L (5.0-14.0)
[2024-06-21] MEDS: Sodium Chloride 0.9% 1,000 ML IV ONE (14:42)
[2024-06-21] MEDS: Furosemide 20 MG/2 ML VIAL IVPUSH ONE (16:28)
== END 2024-06-21 17:22 | disposition home or self-care (01) ==
LOC: JP.ED 12:23
DX: E87.5 Hyperkalemia (principal); E87.1 Hypo-osmolality and hyponatremia; J90 Pleural effusion, not elsewhere classified; Z79.899 Other long term (current) drug therapy
CPT/HCPCS: 32555; 36415; 71046; 71046-26; 80048; 85025; 96361; 96374; 99285; 99285-25; C1729; J1940; J7030

== ENCOUNTER 2024-06-24 21:35 | Emergency (ER) | payer MEDICARE ==
[2024-06-24 22:31] LABS: BASOPHILS ABSOLUTE AUTO 0.04 K/uL (0.00-0.10); BASOPHILS PERCENT AUTO 0.3 % (0.1-1.3); EOSINOPHILS PERCENT AUTO 0.1 % (0.0-5.4); HEMATOCRIT 38.2 % (34.3-46.0); HEMOGLOBIN 13.2 g/dL (11.2-15.5); IMMATURE GRAN ABSOLUTE AUTO 0.26 K/uL (0.00-0.23); IMMATURE GRAN PERCENT AUTO 1.9 % (0.0-0.7); LYMPHOCYTES ABSOLUTE AUTO 0.26 K/uL (0.8-3.3); LYMPHOCYTES PERCENT AUTO 1.9 % (11.4-47.7); MEAN CORPUSCULAR HEMOGLOBIN 29.9 pg (31.6-35.5); MEAN CORPUSCULAR HGB CONC 34.6 g/dL (31.6-35.5); MEAN CORPUSCULAR VOLUME 86.4 fL (81.4-99.0); MONOCYTES ABSOLUTE AUTO 0.06 K/uL (0.20-0.90); MONOCYTES PERCENT AUTO 0.4 % (3.3-12.6); NEUTROPHILS ABSOLUTE AUTO 12.89 K/uL (1.0-7.6); NEUTROPHILS PERCENT AUTO 95.4 % (40.0-78.1); PLATELET COUNT,PLT 69 K/uL (130-375); RED BLOOD CELL COUNT 4.42 M/uL (3.77-5.24); WHITE BLOOD CELL COUNT,WBC 13.5 K/uL (3.2-11.0)
[2024-06-24 22:34] LABS: BASE EXCESS ARTERIAL 2.5 mm/L; METHEMOGLOBIN 0.8 %; O2 SATURATION ARTERIAL 96.3 % (95.0-98.0); OXYHEMOGLOBIN 93.6 %; PCO2 ARTERIAL 38.3 mmHg (35.0-42.0); TOTAL HEMOGLOBIN 13.8 g/dL (12.0-16.0)
[2024-06-24 22:39] LABS: EOSINOPHILS ABSOLUTE AUTO 0.02 K/uL (0.00-0.40)
[2024-06-24 22:51] LABS: A/G RATIO 0.5 (1.2-2.2); ALANINE AMINOTRANSFERASE,ALT 42 U/L (12-78); ALBUMIN 1.7 g/dL (3.4-5.0); ALKALINE PHOSPHATASE 120 U/L (46-116); ASPARTATE AMNIOTRANSFERASE,AST 58 U/L (15-37); BILIRUBIN TOTAL 2.8 mg/dL (0.2-1.0); BLOOD UREA NITROGEN,BUN 24 mg/dL (7-18); CALCIUM 9.2 mg/dL (8.5-10.1); CARBON DIOXIDE,CO2 28 mmol/L (21-32); CHLORIDE,CL 98 mmol/L (100-108); CREATININE 0.7 mg/dL (0.6-1.0); EST CRCL DRUG DOSING (CG) 67.34 mL/min; ESTIMATED GFR 95 mL/min (>60); GLUCOSE RANDOM 120 mg/dL (74-106); POTASSIUM,K 5.1 mmol/L (3.6-5.2); PROTEIN TOTAL,TP 5.3 g/dL (6.4-8.2); SODIUM,NA 132 mmol/L (140-148)
[2024-06-24 22:55] LABS: PO2 ARTERIAL 83.7 mmHg (75.0-100.0)
[2024-06-24 23:03] LABS: ANION GAP 11.1 mmol/L (5.0-14.0)
== END 2024-06-24 23:41 | disposition home or self-care (01) ==
LOC: JP.ED 21:35
DX: J90 Pleural effusion, not elsewhere classified (principal); J44.9 Chronic obstructive pulmonary disease, unspecified; Z79.899 Other long term (current) drug therapy
CPT/HCPCS: 36415; 36600; 71046; 71046-26; 80053; 82803; 85025; 99284; 99285

== ENCOUNTER 2024-06-26 12:50 | Emergency (ER) | payer MEDICARE ==
[2024-06-26 13:35] LABS: BASOPHILS ABSOLUTE AUTO 0.03 K/uL (0.00-0.10); BASOPHILS PERCENT AUTO 0.4 % (0.1-1.3); EOSINOPHILS ABSOLUTE AUTO 0.02 K/uL (0.00-0.40); EOSINOPHILS PERCENT AUTO 0.2 % (0.0-5.4); HEMATOCRIT 36.1 % (34.3-46.0); HEMOGLOBIN 12.6 g/dL (11.2-15.5); IMMATURE GRAN ABSOLUTE AUTO 0.35 K/uL (0.00-0.23); IMMATURE GRAN PERCENT AUTO 4.1 % (0.0-0.7); LYMPHOCYTES PERCENT AUTO 3.5 % (11.4-47.7); MEAN CORPUSCULAR HEMOGLOBIN 29.7 pg (31.6-35.5); MEAN CORPUSCULAR HGB CONC 34.9 g/dL (31.6-35.5); MEAN CORPUSCULAR VOLUME 85.1 fL (81.4-99.0); MONOCYTES ABSOLUTE AUTO 0.06 K/uL (0.20-0.90); MONOCYTES PERCENT AUTO 0.7 % (3.3-12.6); NEUTROPHILS ABSOLUTE AUTO 7.76 K/uL (1.0-7.6); NEUTROPHILS PERCENT AUTO 91.1 % (40.0-78.1); PLATELET COUNT,PLT 45 K/uL (130-375); RED BLOOD CELL COUNT 4.24 M/uL (3.77-5.24); WHITE BLOOD CELL COUNT,WBC 8.5 K/uL (3.2-11.0)
[2024-06-26 13:50] LABS: ANION GAP 10.9 mmol/L (5.0-14.0); CALCIUM 9.3 mg/dL (8.5-10.1); CREATININE 0.6 mg/dL (0.6-1.0); EST CRCL DRUG DOSING (CG) 78.57 mL/min; POTASSIUM,K 5.9 mmol/L (3.6-5.2)
[2024-06-26] MEDS: Albuterol 0.083% 2.5 MG/3 ML Neb Soln NEB ONE (14:45)
[2024-06-26] MEDS: Furosemide 40 MG/4 ML VIAL IVPUSH ONE (14:45)
[2024-06-26] MEDS: Sodium Chloride 0.9% 10 ML Syringe FLUSH PRN (14:45)
[2024-06-26] MEDS: Calcium Gluconate 10% 1 GM/10 ML SDV IVPUSH ONE (14:45)
[2024-06-26] MEDS: HYDROmorphone 0.5 MG/0.5 ML Syringe IVPUSH ONE ×2 (14:56→17:02)
[2024-06-26] MEDS: Aluminum Hydroxide/Magnesium Hydroxide/Simethicone Susp 30 ML Cup PO PRN (14:56)
== END 2024-06-26 17:38 | disposition home or self-care (01) ==
LOC: JP.ED 12:50
DX: E87.5 Hyperkalemia (principal); J44.9 Chronic obstructive pulmonary disease, unspecified; E03.9 Hypothyroidism, unspecified; Z79.890 Hormone replacement therapy; Z87.891 Personal history of nicotine dependence; Z79.899 Other long term (current) drug therapy
CPT/HCPCS: 36415; 80048; 84132; 84484; 85025; 93005; 93010; 94640; 96374; 96375; 96376; 99284; 99285-25; A9270-GY; J0612; J1940

== ENCOUNTER 2024-07-05 08:49 | Day surgery (SDC) | payer MEDICARE ==
[~2024-07-05 08:49] MED LIST: Bupivacaine 0.5% 50 ML MDV ONE; Lidocaine 1% with EPINEPHrine 1:100,000 50 ML MDV ONE
[2024-07-05] MEDS: Lactated Ringers 1,000 ML IV SCH (09:19)
[2024-07-05] MEDS: Albuterol/Ipratropium 3.0-0.5 MG/3 ML Neb Soln NEB ONE (10:02)
[2024-07-05] MEDS ORDERED: fentaNYL 100 MCG/2 ML SDV ONE (12:22)
[2024-07-05] MEDS ORDERED: Midazolam 1 MG/ML 2 ML SDV ONE (12:22)
[2024-07-05] MEDS ORDERED: Propofol 200 MG/20 ML SDV ONE ×3 (12:22→13:28)
[2024-07-05] MEDS: Acetaminophen 325 MG Tab PO ONE (14:37)
[2024-07-05] MEDS: Ibuprofen 600 MG Tab PO ONE (14:44)
== END 2024-07-05 15:10 | disposition home or self-care (01) ==
LOC: JP.SDS 08:49
PROVIDERS: ATTEND Surgery
DX: C34.90 Malignant neoplasm of unspecified part of unspecified bronchus or lung (principal); J44.9 Chronic obstructive pulmonary disease, unspecified; F17.200 Nicotine dependence, unspecified, uncomplicated
CPT/HCPCS: 36561; 71045; 76000; 94640; A9270; C1788; C1894; J0665; J1642; J2250; J2704; J3010; J7120; 00532-QZ

== ENCOUNTER 2024-07-07 18:25 | Inpatient (IN) | payer MEDICARE, MEDICAID ==
[2024-07-07 19:34] LABS: HEMATOCRIT 30.6 % (34.3-46.0); HEMOGLOBIN 10.7 g/dL (11.2-15.5); MEAN CORPUSCULAR HEMOGLOBIN 30.1 pg (31.6-35.5); MEAN CORPUSCULAR VOLUME 86.2 fL (81.4-99.0); PLATELET COUNT,PLT 204 K/uL (130-375); RED BLOOD CELL COUNT 3.55 M/uL (3.77-5.24); WHITE BLOOD CELL COUNT,WBC 11.5 K/uL (3.2-11.0)
[2024-07-07] MEDS: Morphine 4 MG/ML Syringe IVPUSH ONE ×2 (19:34→21:59)
[2024-07-07] MEDS: diphenhydrAMINE 50 MG/ML SDV IVPUSH ONE (19:38)
[2024-07-07] MEDS: Furosemide 40 MG/4 ML VIAL IVPUSH ONE (19:41)
[2024-07-07] MEDS: Promethazine 6.25 MG in Sodium Chloride 0.9% 50 ML IV ONE (19:49)
[2024-07-07] MEDS: Sodium Chloride 0.9% 10 ML Syringe FLUSH ONE (19:49)
[2024-07-07 19:50] LABS: INR 1.1; PROTHROMBIN TIME 11.4 sec (9.2-10.6)
[2024-07-07 20:00] LABS: A/G RATIO 0.4 (1.2-2.2); ALANINE AMINOTRANSFERASE,ALT 39 U/L (12-78); ALBUMIN 1.4 g/dL (3.4-5.0); ALKALINE PHOSPHATASE 193 U/L (46-116); ANION GAP 12.9 mmol/L (5.0-14.0); ASPARTATE AMNIOTRANSFERASE,AST 45 U/L (15-37); BILIRUBIN TOTAL 0.9 mg/dL (0.2-1.0); BLOOD UREA NITROGEN,BUN 31 mg/dL (7-18); CALCIUM 8.5 mg/dL (8.5-10.1); CARBON DIOXIDE,CO2 24 mmol/L (21-32); CHLORIDE,CL 97 mmol/L (100-108); CREATININE 1.4 mg/dL (0.6-1.0); EST CRCL DRUG DOSING (CG) 33.67 mL/min; ESTIMATED GFR 41 mL/min (>60); GLUCOSE RANDOM 131 mg/dL (74-106); POTASSIUM,K 4.9 mmol/L (3.6-5.2); PROTEIN TOTAL,TP 5.2 g/dL (6.4-8.2); SODIUM,NA 129 mmol/L (140-148)
[2024-07-07 20:15] LABS: BLAST ABSOLUTE MAN 2.07 K/uL (0-0); BLASTS PERCENT MAN 18 %; EOSINOPHILS ABSOLUTE MAN 0.12 K/uL (0.00-0.40); EOSINOPHILS PERCENT MAN 1 % (2-4); LYMPHOCYTES ABSOLUTE MAN 1.84 K/uL (0.8-3.3); LYMPHOCYTES PERCENT MAN 16 % (24-44); MONOCYTES ABSOLUTE MAN 1.84 K/uL (0.20-0.90); MONOCYTES PERCENT MAN 16 % (2-6); NEUTROPHILS ABSOLUTE MAN 5.64 K/uL (1.0-7.6); SEG NEUTROPHILS PERCENT MAN 49 % (36-66)
[2024-07-07] MEDS: Iopamidol 755 Mg/ML 100 ML Bottle IV SCH (20:43)
[2024-07-07] MEDS: Sodium Chloride 0.9% 80 ML IV SCH (20:43)
[2024-07-08] MEDS: hydrOXYzine HCL 100 MG/2 ML SDV IM ONE (00:20)
[2024-07-08] MEDS ORDERED: oxyCODONE 5 MG Tab PO PRN (00:35)
[2024-07-08] MEDS ORDERED: Albuterol 0.083% 2.5 MG/3 ML Neb Soln NEB PRN (00:35)
[2024-07-08] MEDS ORDERED: Ondansetron 4 MG/2 ML SDV IV PRN (00:35)
[2024-07-08] MEDS ORDERED: Sennosides/Docusate Sodium 50-8.6 MG Tab PO PRN (00:35)
[2024-07-08] MEDS ORDERED: Acetaminophen 325 MG Tab PO PRN (00:35)
[2024-07-08] MEDS ORDERED: Ondansetron 4 MG Tab.DIS PO PRN (00:35)
[2024-07-08] MEDS ORDERED: Naloxone 0.4 MG/ML SDV IVPUSH PRN (00:35)
[2024-07-08] MEDS ORDERED: HYDROmorphone 1 MG/ML Syringe IVPUSH PRN (00:35)
[2024-07-08] MEDS ORDERED: Prochlorperazine 10 MG Tab PO PRN (00:55)
[2024-07-08] MEDS: Albumin Human 100 ML IV ONE (01:12)
[2024-07-08] MEDS: HYDROmorphone 0.5 MG/0.5 ML Syringe IVPUSH PRN (01:21)
[2024-07-08] MEDS: Melatonin 3 MG Tab PO PRN (01:24)
[2024-07-08 05:53] LABS: HEMOGLOBIN 11.3 g/dL (11.2-15.5); MEAN CORPUSCULAR HEMOGLOBIN 30.1 pg (31.6-35.5); MEAN CORPUSCULAR HGB CONC 34.2 g/dL (31.6-35.5); RED BLOOD CELL COUNT 3.75 M/uL (3.77-5.24); WHITE BLOOD CELL COUNT,WBC 14.3 K/uL (3.2-11.0)
[2024-07-08 06:15] LABS: A/G RATIO 0.6 (1.2-2.2); ALANINE AMINOTRANSFERASE,ALT 44 U/L (12-78); ALBUMIN 2.3 g/dL (3.4-5.0); ALKALINE PHOSPHATASE 193 U/L (46-116); ANION GAP 14.4 mmol/L (5.0-14.0); ASPARTATE AMNIOTRANSFERASE,AST 46 U/L (15-37); BLOOD UREA NITROGEN,BUN 32 mg/dL (7-18); CALCIUM 8.7 mg/dL (8.5-10.1); CARBON DIOXIDE,CO2 24 mmol/L (21-32); CHLORIDE,CL 96 mmol/L (100-108); CREATININE 1.4 mg/dL (0.6-1.0); EST CRCL DRUG DOSING (CG) 30.84 mL/min; ESTIMATED GFR 41 mL/min (>60); GLUCOSE RANDOM 119 mg/dL (74-106); POTASSIUM,K 5.4 mmol/L (3.6-5.2); PROTEIN TOTAL,TP 6.1 g/dL (6.4-8.2); SODIUM,NA 129 mmol/L (140-148)
[2024-07-08] MEDS: Albuterol/Ipratropium 3.0-0.5 MG/3 ML Neb Soln NEB SCH ×2 (07:14→10:48)
[2024-07-08] MEDS ORDERED: Spironolactone 25 MG Tab PO SCH (09:00)
[2024-07-08] MEDS: Tiotropium Bromide 4 GM Inhalation Spray (2.5mcg/1 dose; 10 doses) INH SCH (09:04)
[2024-07-08] MEDS: Formoterol/Mometasone 200-5 MCG 8.8 GM Inhaler IH SCH (09:04)
[2024-07-08] MEDS: Thiamine 100 MG Tab PO SCH (09:18)
[2024-07-08] MEDS: Bumetanide 2.5 MG/10 ML MDV IVPUSH SCH (09:18)
[2024-07-08] MEDS: Pantoprazole 40 MG Tab.CR PO SCH (09:18)
[2024-07-08] MEDS: Sennosides/Docusate Sodium 50-8.6 MG Tab PO SCH (09:19)
[2024-07-08 10:05] LABS: APPEARANCE,URINE SLIGHTLY CLOUDY (CLEAR); BILIRUBIN,URINE NEGATIVE (NEGATIVE); COLOR,URINE YELLOW (YELLOW); GLUCOSE,URINE NEGATIVE (NEGATIVE); KETONES,URINE NEGATIVE (NEGATIVE); LEUKOCYTE ESTERASE,URINE NEGATIVE (NEGATIVE); NITRITE,URINE NEGATIVE (NEGATIVE); OCCULT BLOOD,URINE TRACE-INTACT (NEGATIVE); PH,URINE 5.5 (5.0-8.0); PROTEIN,URINE NEGATIVE (NEGATIVE); UROBILINOGEN,URINE 0.2 EU/dL (0.2-1.0)
[2024-07-08 10:15] LABS: RBC,URINE 0-5 (0-5)
[2024-07-08 10:16] LABS: AMORPHOUS SEDIMENT,URINE NOT SEEN; BACTERIA,URINE MODERATE; EPITHELIAL CELLS,URINE FEW; MUCUS,URINE FEW
[2024-07-08 10:16] LABS: AMPHETAMINES SCREEN, URINE NEGATIVE (NEGATIVE); BARBITURATE SCREEN,URINE NEGATIVE (NEGATIVE); BENZODIAZEPINES SCREEN,URINE NEGATIVE (NEGATIVE); METHADONE SCREEN, URINE NEGATIVE (NEGATIVE); METHAMPHETAMINES SCREEN, URINE NEGATIVE (NEGATIVE); OXYCODONE SCREEN,URINE NEGATIVE (NEGATIVE); PROPOXYPHENE SCREEN,URINE NEGATIVE (NEGATIVE); THC SCREEN,URINE 50 NG/ML NEGATIVE (NEGATIVE)
[2024-07-08] MEDS: LORazepam 2 MG/ML SDV IVPUSH PRN (10:20)
[2024-07-08] MEDS: Morphine 15 MG Tab PO PRN (12:00)
[2024-07-08 12:10] LABS: BICARBONATE,ARTERIAL 21.5 mmol/L (22.0-26.0); CARBOXYHEMOGLOBIN 2.5 % (0.0-1.6); O2 SATURATION ARTERIAL 98.1 % (95.0-98.0); OXYHEMOGLOBIN 94.7 %
[2024-07-08] MEDS: cefTRIAXone 2 GM in Sodium Chloride 0.9% 50 ML IV SCH (12:50)
[2024-07-08] MEDS: Lactulose Soln 10 GM/15 ML 15 ML UD Cup PO SCH (13:15)
[2024-07-08] MEDS: Haloperidol Lactate 5 MG/ML SDV IVPUSH ONE (13:51)
[2024-07-08] MEDS: Haloperidol Lactate 5 MG/ML SDV IVPUSH PRN (19:45)
[2024-07-09 05:43] LABS: HEMATOCRIT 30.1 % (34.3-46.0); HEMOGLOBIN 10.2 g/dL (11.2-15.5); MEAN CORPUSCULAR HEMOGLOBIN 30.1 pg (31.6-35.5); MEAN CORPUSCULAR HGB CONC 33.9 g/dL (31.6-35.5); MEAN CORPUSCULAR VOLUME 88.8 fL (81.4-99.0); RED BLOOD CELL COUNT 3.39 M/uL (3.77-5.24); WHITE BLOOD CELL COUNT,WBC 16.4 K/uL (3.2-11.0)
[2024-07-09 06:00] LABS: INR 1.1; PROTHROMBIN TIME 11.1 sec (9.2-10.6)
[2024-07-09 06:04] LABS: A/G RATIO 0.5 (1.2-2.2); ALANINE AMINOTRANSFERASE,ALT 37 U/L (12-78); ALBUMIN 1.9 g/dL (3.4-5.0); ALKALINE PHOSPHATASE 177 U/L (46-116); ASPARTATE AMNIOTRANSFERASE,AST 40 U/L (15-37); BILIRUBIN TOTAL 1.2 mg/dL (0.2-1.0); BLOOD UREA NITROGEN,BUN 39 mg/dL (7-18); CALCIUM 8.5 mg/dL (8.5-10.1); CARBON DIOXIDE,CO2 26 mmol/L (21-32); CHLORIDE,CL 97 mmol/L (100-108); CREATININE 1.4 mg/dL (0.6-1.0); EST CRCL DRUG DOSING (CG) 30.84 mL/min; ESTIMATED GFR 41 mL/min (>60); GLUCOSE RANDOM 139 mg/dL (74-106); POTASSIUM,K 5.5 mmol/L (3.6-5.2); PROTEIN TOTAL,TP 5.5 g/dL (6.4-8.2); SODIUM,NA 130 mmol/L (140-148)
[2024-07-09 06:06] LABS: ANION GAP 12.5 mmol/L (5.0-14.0)
[2024-07-09] MEDS ORDERED: Sodium Chloride 0.9% 10 ML Syringe IV PRN (08:29)
[2024-07-09] MEDS: Albumin Human 25 GM in Premix Bag 1 BAG IV ONE (10:45)
[2024-07-10 06:12] LABS: HEMATOCRIT 31.5 % (34.3-46.0); HEMOGLOBIN 10.3 g/dL (11.2-15.5); MEAN CORPUSCULAR HEMOGLOBIN 29.5 pg (31.6-35.5); MEAN CORPUSCULAR HGB CONC 32.7 g/dL (31.6-35.5); MEAN CORPUSCULAR VOLUME 90.3 fL (81.4-99.0); RED BLOOD CELL COUNT 3.49 M/uL (3.77-5.24)
[2024-07-10 06:31] LABS: A/G RATIO 0.6 (1.2-2.2); ALANINE AMINOTRANSFERASE,ALT 37 U/L (12-78); ALBUMIN 2.5 g/dL (3.4-5.0); ALKALINE PHOSPHATASE 183 U/L (46-116); ASPARTATE AMNIOTRANSFERASE,AST 48 U/L (15-37); BILIRUBIN TOTAL 1.2 mg/dL (0.2-1.0); BLOOD UREA NITROGEN,BUN 39 mg/dL (7-18); CARBON DIOXIDE,CO2 25 mmol/L (21-32); CHLORIDE,CL 96 mmol/L (100-108); CREATININE 1.1 mg/dL (0.6-1.0); EST CRCL DRUG DOSING (CG) 39.25 mL/min; ESTIMATED GFR 55 mL/min (>60); GLUCOSE RANDOM 126 mg/dL (74-106); PROTEIN TOTAL,TP 6.4 g/dL (6.4-8.2); SODIUM,NA 130 mmol/L (140-148)
[2024-07-10] MEDS: Lactulose Soln 10 GM/15 ML 15 ML UD Cup PO SCH (08:11)
[2024-07-10] MEDS: Bumetanide 1 MG/4 ML MDV IVPUSH SCH (08:12)
[2024-07-11 06:05] LABS: HEMATOCRIT 30.3 % (34.3-46.0); HEMOGLOBIN 10.2 g/dL (11.2-15.5); MEAN CORPUSCULAR HEMOGLOBIN 30.4 pg (31.6-35.5); MEAN CORPUSCULAR HGB CONC 33.7 g/dL (31.6-35.5); MEAN CORPUSCULAR VOLUME 90.4 fL (81.4-99.0); RED BLOOD CELL COUNT 3.35 M/uL (3.77-5.24); WHITE BLOOD CELL COUNT,WBC 15.2 K/uL (3.2-11.0)
[2024-07-11 06:28] LABS: A/G RATIO 0.6 (1.2-2.2); ALANINE AMINOTRANSFERASE,ALT 36 U/L (12-78); ALBUMIN 2.3 g/dL (3.4-5.0); ALKALINE PHOSPHATASE 174 U/L (46-116); ASPARTATE AMNIOTRANSFERASE,AST 50 U/L (15-37); BLOOD UREA NITROGEN,BUN 30 mg/dL (7-18); CALCIUM 8.9 mg/dL (8.5-10.1); CARBON DIOXIDE,CO2 26 mmol/L (21-32); CHLORIDE,CL 96 mmol/L (100-108); CREATININE 0.8 mg/dL (0.6-1.0); EST CRCL DRUG DOSING (CG) 53.97 mL/min; ESTIMATED GFR 81 mL/min (>60); GLUCOSE RANDOM 131 mg/dL (74-106); POTASSIUM,K 4.8 mmol/L (3.6-5.2); PROTEIN TOTAL,TP 6.1 g/dL (6.4-8.2); SODIUM,NA 130 mmol/L (140-148)
[2024-07-11 06:32] LABS: ANION GAP 12.8 mmol/L (5.0-14.0)
[2024-07-11] MEDS: LORazepam 0.5 MG Tab PO PRN (09:17)
== END 2024-07-11 09:30 | disposition hospice, home (50) | DRG 181 ==
LOC: JP.ED 18:25 → JP.MS 23:54 → EEVIPCON 23:54
PROVIDERS: ADMIT Registered Nurse; ATTEND Hospitalist
DX: C34.2 Malignant neoplasm of middle lobe, bronchus or lung (principal); R11.2 Nausea with vomiting, unspecified; R60.0 Localized edema; E87.1 Hypo-osmolality and hyponatremia; J90 Pleural effusion, not elsewhere classified; Z68.41 Body mass index [BMI] 40.0-44.9, adult; Z88.5 Allergy status to narcotic agent; Z79.51 Long term (current) use of inhaled steroids; N30.00 Acute cystitis without hematuria; H26.9 Unspecified cataract; H54.7 Unspecified visual loss; J44.9 Chronic obstructive pulmonary disease, unspecified; F32.A Depression, unspecified; E03.9 Hypothyroidism, unspecified; E66.9 Obesity, unspecified; K74.60 Unspecified cirrhosis of liver; K76.82 Hepatic encephalopathy; Z88.8 Allergy status to other drugs, medicaments and biological substances; Z79.899 Other long term (current) drug therapy; Z98.890 Other specified postprocedural states; Z85.118 Personal history of other malignant neoplasm of bronchus and lung; Z87.891 Personal history of nicotine dependence
CPT/HCPCS: 36415; 36600; 71045; 71045-26; 71275; 76705; 76705-26; 80053; 80305-QW; 81001; 82140; 82803; 83605; 84484; 85025; 85027; 85610; 86140; 87086; 87088; 87186; 93010; 94640; 96365; 96375; 96376; 99223; 99232; 99239; 99285; 99285-25; A9270-GY; J0696; J1200; J1630; J1939; J1940; J2060; J2270; J2550; J3410; J3490; P9047; Q9967